=== PATIENT | female | born 1965 | race Caucasian/White ===

== ENCOUNTER 2021-02-18 18:01 | Emergency (ER) | payer BC ==
[~2021-02-18] VITALS: Ht 139.7 cm; Wt 67.1 kg
[2021-02-18] MEDS ORDERED: AUGMENTIN 500-1 EACH PO (22:46)
[2021-02-18] MEDS ORDERED: ZOFRAN ODT4 MG PO (22:46)
[2021-02-18] MEDS ORDERED: HYDROCODON-ACE1 EAC7 PO (22:46)
[2021-02-18 23:19] VITALS: BP 135/79
== END 2021-02-18 23:19 | disposition home or self-care (01) ==
LOC: M.ERS 18:01
DX: S52.591A Other fractures of lower end of right radius, initial encounter for closed fracture (principal); S52.691A Other fracture of lower end of right ulna, initial encounter for closed fracture; Z88.8 Allergy status to other drugs, medicaments and biological substances; W01.0XXA Fall on same level from slipping, tripping and stumbling without subsequent striking against object, initial encounter; Y93.89 Activity, other specified; Y92.89 Other specified places as the place of occurrence of the external cause; Y99.8 Other external cause status